=== PATIENT | male | born 1975 | race Caucasian/White ===

== ENCOUNTER 2017-01-12 19:59 | Emergency (ER) | payer MEDICAID ==
[~2017-01-12] VITALS: Ht 188 cm; Wt 99.8 kg
[~2017-01-12 19:59] MED LIST: AUGMENTIN 875-1 EAC1 ORAL; FLONASE16 GM NASAL; NKM
[2017-01-12 20:00] VITALS: BP 164/98
[2017-01-12 21:17] LABS: BASOPHILS % (AUTO) 2.2 % (0.0-2.0); LYMPHOCYTES % (AUTO) 39.7 % (20.0-45.0); MEAN CORPUSCULAR HEMOGLOBIN 30.1 PG (27.0-31.0); MEAN CORPUSCULAR HGB CONC 30.8 G/DL (32.0-36.0); MEAN CORPUSCULAR VOLUME 98 FL (80-99); MONOCYTES % (AUTO) 5.1 % (1.0-10.0); NEUTROPHILS % (AUTO) 49.9 % (45.0-75.0); PLATELET COUNT 238 K/UL (150-450); RED BLOOD COUNT 3.65 M/UL (4.70-6.10)
--- NOTE | 2017-01-12 21:49 | Emergency Room Report ---
History of Present Illness General Chief Complaint: Chest Pain Source: Patient (Daivd Sethi M.D.) Present Illness HPI The patient was brought in by EMS. He is complaining about generalized pain but it seemed to be more in the patient's chest. EMS performed an EKG which was normal. In addition they gave him aspirin and nitrates. There was no change in the pain with this. The patient denied drugs and alcohol with with the paramedics but then he admits to both with me stating that he's been using methamphetamine. The patient complains more weakness than pain in his body. He denies suicidal or homicidal ideation at this time. No NVD, dysuria, muscle pain, headache, rashes, trauma. (David Sethi M.D.) Allergies: Coded Allergies: No Known Allergies (Unverified , 03/31/14) Patient History Past Medical History: see triage record Social History: Reports: alcohol use, drug use Social History Narrative on streets Reviewed Nursing Documentation: PMH: Agreed, PSxH: Agreed (David Sethi M.D.) Nursing Documentation-PMH Past Medical History: No Stated History Hx Hypertension: Yes Hx Asthma: Yes (David Sethi M.D.) Review of Systems All Other Systems: negative except mentioned in HPI (David Sethi M.D.) Physical Exam Vital Signs Date Time Temp Pulse Resp B/P (MAP) Pulse Ox O2 Delivery O2 Flow Rate FiO2 01/12/17 19:52 99.1 102 16 164/98 98 Room Air Sp02 EP Interpretation: reviewed, normal General Appearance: well appearing, no apparent distress, GCS 15, other - dishevelled Head: normocephalic Eyes: bilateral eye PERRL, bilateral eye Scleral Injection ENT: moist mucus membranes Neck: full range of motion, supple Respiratory: lungs clear, normal breath sounds Cardiovascular #1: regular rate, rhythm Cardiovascular #2: 2+ radial (R) Gastrointestinal: normal inspection, normal bowel sounds, non tender, no mass, non-distended Musculoskeletal: back normal, gait/station normal, normal range of motion Neurologic: alert, 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 Differential includes acute myocardial infarction diabetes, electrolyte abnormality, rhabdomyolysis amongst others. Evaluation will be with EKG, chest x-ray and labs. The patient will receive IV hydration. Patient fully awake and wants to leave. Asked to stay for lab to return. EKG no injury. CXR no infiltrates. Labs with normal WBC, H/H, lytes and troponin. + amphetamine and BA +. Discussed findings with patient. He wants to leave and has received IV hydration. Slightly pressured but denies SI. Patient stable for outpatient observation and treatment. Laboratory Tests Test 01/12/17 21:00 01/12/17 21:40 White Blood Count 5.0 K/UL (4.8-10.8) Red Blood Count 3.65 M/UL (4.70-6.10) L Hemoglobin 11.0 G/DL (14.2-18.0) L Hematocrit 35.7 % (42.0-52.0) L Mean Corpuscular Volume 98 FL (80-99) Mean Corpuscular Hemoglobin 30.1 PG (27.0-31.0) Mean Corpuscular Hemoglobin Concent 30.8 G/DL (32.0-36.0) L Red Cell Distribution Width 13.0 % (11.6-14.8) Platelet Count 238 K/UL (150-450) Mean Platelet Volume 5.0 FL (6.5-10.1) L Neutrophils (%) (Auto) 49.9 % (45.0-75.0) Lymphocytes (%) (Auto) 39.7 % (20.0-45.0) Monocytes (%) (Auto) 5.1 % (1.0-10.0) Eosinophils (%) (Auto) 3.0 % (0.0-3.0) Basophils (%) (Auto) 2.2 % (0.0-2.0) H Sodium Level 137 MMOL/L (136-145) Potassium Level 3.5 MMOL/L (3.5-5.1) Chloride Level 101 MMOL/L (98-107) Carbon Dioxide Level 27 MMOL/L (21-32) Anion Gap 9 (5-15) Blood Urea Nitrogen 15 mg/dL (7-18) Creatinine 0.8 MG/DL (0.55-1.00) Estimate Glomerular Filtration Rate > 60 mL/min (>60) Glucose Level 113 MG/DL (74-106) H Calcium Level 8.0 MG/DL (8.5-10.1) L Total Bilirubin 0.2 MG/DL (0.2-1.0) Aspartate Amino Transferase (AST) 47 U/L (15-37) H Alanine Aminotransferase (ALT) 59 U/L (12-78) Alkaline Phosphatase 85 U/L (46-116) Total Creatine Kinase 193 U/L (26-308) Troponin I 0.007 ng/mL (0.000-0.056) Total Protein 6.3 G/DL (6.4-8.2) L Albumin 2.9 G/DL (3.4-5.0) L Globulin 3.4 g/dL Albumin/Globulin Ratio 0.8 (1.0-2.7) L Salicylates Level 3 ug/mL (2.8-20) Acetaminophen Level 0.3 MCG/ML (10-30) L Serum Alcohol 29 mg/dL Urine Opiates Screen Negative (NEGATIVE) Urine Barbiturates Screen Negative (NEGATIVE) Phencyclidine (PCP) Screen Negative (NEGATIVE) Urine Amphetamines Screen Positive (NEGATIVE) H Urine Benzodiazepines Screen Negative (NEGATIVE) Urine Cocaine Screen Negative (NEGATIVE) Urine Marijuana (THC) Screen Positive (NEGATIVE) H (David Sethi M.D.) EKG Diagnostic Results Rate: normal Rhythm: NSR ST Segments: no acute changes (David Sethi M.D.) Rhythm Strip Diag. Results EP Interpretation: yes Rhythm: NSR, no PVC's, no ectopy (David Sethi M.D.) Chest X-Ray Diagnostic Results Chest X-Ray Diagnostic Results : Chest X-Ray Ordered: Yes # of Views/Limited/Complete: 1 View Indication: Chest Pain EP Interpretation: Yes Interpretation: no consolidation, no effusion, no pneumothorax, no acute cardiopulmonary disease Impression: No acute disease Electronically Signed by: Electronically signed by David Sethi MD (David Sethi M.D.) Last Vital Signs Date Time Temp Pulse Resp B/P (MAP) Pulse Ox O2 Delivery O2 Flow Rate FiO2 01/12/17 23:33 99.1 107 22 140/78 99 Room Air Status: improved (David Sethi M.D.) Disposition: HOME, SELF-CARE Condition: Improved Referrals: NON PHYSICIAN (PCP) David Sethi M.D. Jan 12, 2017 21:49 Pravin Crooks M.D. Jan 12, 2017 22:35
[2017-01-12 22:00] VITALS: BP 132/69
[2017-01-12 22:15] LABS: ALCOHOL 29 mg/dL; ANION GAP 9 (5-15); CARBON DIOXIDE 27 MMOL/L (21-32); CHLORIDE 101 MMOL/L (98-107); CREATININE 0.8 MG/DL (0.55-1.00); GLOMERULAR FILTRATION RATE > 60 mL/min (>60); POTASSIUM 3.5 MMOL/L (3.5-5.1); SODIUM 137 MMOL/L (136-145)
[2017-01-12 22:41] LABS: ACETAMINOPHEN 0.3 MCG/ML (10-30); ALANINE AMINOTRANSFERASE 59 U/L (12-78); ALBUMIN/GLOBULIN RATIO 0.8 (1.0-2.7); ASPARTATE AMINO TRANSFERASE 47 U/L (15-37); TOTAL PROTEIN 6.3 G/DL (6.4-8.2)
[2017-01-12 23:30] VITALS: BP 140/78
[2017-01-12 23:33] VITALS: BP 140/78
--- NOTE | 2017-01-13 10:25 | Diagnostic Imaging Report ---
Indication: Chest pain Comparison: None A single view chest radiograph was obtained. Findings: Cardiomediastinal appearance is within normal limits for age. Pulmonary vascularity is appropriate. The diaphragmatic contour is smooth and costophrenic angles are sharp. No pleural effusions are identified. The bones are unremarkable. Impression: No acute findings
--- NOTE | 2017-01-14 08:09 | Cardiology Report ---
APPROVED REPORT EKG Measurement Heart [id number] Normal sinus rhythm Normal ECG
== END 2017-01-12 23:33 | disposition home or self-care (01) ==
LOC: EDBD 19:59 → EMR 20:10
DX: R07.9 Chest pain, unspecified (principal); F15.10 Other stimulant abuse, uncomplicated; J45.909 Unspecified asthma, uncomplicated
CPT/HCPCS: 36415; 71010; 80053; 80300; 80329; 82550; 84484; 85025; 93005; 96360; 99284